=== PATIENT | female | born 1950 | race African-American/Black ===

== ENCOUNTER 2020-02-01 19:13 | Inpatient (IN) ==
[2020-02-01] MEDS ORDERED: SODIUM CHLORIDE 0.9% 1,000 ML IV STA (19:44)
[2020-02-01] MEDS ORDERED: PIPERACILLIN/TAZOBACTAM 3,375 MG in SODIUM CHLORIDE 0.9% 100 ML IV STA (19:44)
[2020-02-01 20:24] LABS: ABG Base Excess -2.2 MMOL/L (-2.5-2.5); ABG HCO3 22.6 MMOL/L (20-26); ABG Oxygen Saturation 98.6 % (95-100); ABG PCO2 34.3 MM HG (35-48); ABG PH 7.411 (7.35-7.45); ABG TCO2 19.4 MMOL/L (23-27); Allen Test Positive
[2020-02-01] MEDS ORDERED: VANCOMYCIN INJ 1,000 MG in SODIUM CHLORIDE 0.9% 250 ML IV STA (20:38)
[2020-02-01 20:44] LABS: Basophils % 0.2 % (0.0-0.8); Hematocrit 36.5 VOL% (35.7-47.0); Hemoglobin 11.7 GM/DL (12.0-16.0); Immature Granulocytes % 5.2 %; Immature Granulocytes Absolute 0.44 #; Lymphocytes # 0.5 10*3/uL (1.4-4.0); Lymphocytes % 6.4 % (21.3-54.2); Mean Corpuscular HGB Conc 32.1 GM/DL (32-36); Mean Corpuscular Volume 83.3 FL (87-102); Mean Platelet Volume 8.7 FL (9.6-12.0); Neutrophils % 81.2 % (38.7-73.9); Platelet Count 167 T/CUMM (130-400); Red Blood Count 4.38 MC/CUMM (3.8-5.5); Red Cell Distribution Width 16.1 % (9.3-17.3); White Blood Count 8.5 T/CUMM (4-12)
[2020-02-01 20:52] LABS: INR 1.3; PT Patient Result 13.6 SECS (9.8-11.9)
[2020-02-01 21:07] LABS: Alanine Aminotransferase 20 U/L (13-56); Albumin 1.5 G/DL (3.4-5.0); Alkaline Phosphatase 262 U/L (45-117); Aspartate Amino Transferase 55 U/L (0-37); Blood Urea Nitrogen 33 MG/DL (7-18); Calcium 10.3 MG/DL (8.5-10.1); Estimated Glom Filtration Rate 59 ML/MIN; Glucose 113 MG/DL (74-106); Osmolality,Calculated 280.8 MOS/KG (273-304); Total Protein 6.9 G/DL (6.4-8.3); Troponin I < 0.015 NG/ML (0.00-0.045)
[2020-02-01 21:16] LABS: Bilirubin,Urine Negative (Negative); Blood, Urine Small mg/dL (Negative); Glucose,Urine (UA) Negative (Negative); Hyaline Casts,Urine 146 /LPF (0-3); Ketones,Urine 5 mg/dL (Negative); Mucus,Urine Many /LPF (Occasional); Nitrite,Urine Negative (Negative); Protein,Urine 100 MG/DL; RBC,Urine 24 /HPF (0-4); Squamous Epithelial Cell,Urine Occasional /HPF (0-10); Urine Appearance CLOUDY (Clear); Urine Color Amber (Yellow); Urine Specific Gravity 1.021 (1.001-1.035); WBC,Urine 11 /HPF (0-6)
[2020-02-01] MEDS ORDERED: fentaNYL 100 MCG/2 ML VIAL IV STA (22:27)
[2020-02-01] MEDS ORDERED: ACETAMINOPHEN 325 MG TABLET PO PRN (23:23)
[2020-02-01] MEDS ORDERED: NICOTINE 21 MG/24 HR PATCH TRANSDERM PRN (23:23)
[2020-02-01] MEDS ORDERED: GLUCAGON 1 MG VIAL IM PRN (23:23)
[2020-02-01] MEDS ORDERED: DOCUSATE SODIUM 100 MG CAPSULE PO PRN (23:23)
[2020-02-01] MEDS ORDERED: ONDANSETRON 4 MG/2 ML VIAL IV PRN (23:23)
[2020-02-01] MEDS ORDERED: DEXTROSE 50% 25 GM/50 ML VIAL IV PRN (23:23)
[2020-02-01] MEDS ORDERED: hydrALAZINE 20 MG/1 ML VIAL IV PRN (23:23)
[2020-02-01] MEDS ORDERED: guaiFENesin/DM ER 600-30 MG TABLET PO PRN (23:23)
[2020-02-01] MEDS ORDERED: AZITHROMYCIN INJ 500 MG in SODIUM CHLORIDE 0.9% 250 ML IV SCH (23:30)
[2020-02-02] MEDS: ALBUTEROL/IPRATROPIUM 3 ML NEB RESP TX SCH ×2 (00:18→07:44)
[2020-02-02] MEDS ORDERED: SODIUM CHLORIDE 0.9% 1,000 ML IV SCH (01:30)
[2020-02-02] MEDS ORDERED: DEXT 5% NACL 0.9% KCL 40 MEQ 40 MEQ/1,000 ML BAG IV SCH (01:30)
[2020-02-02 02:40] LABS: Band Neutrophils 7 % (0-10); Lymphocytes 5 % (20-55); Metamyelocytes 1 %; Nucleated Red Blood Cells 1 (0-5); Segmented Neutrophils 82 % (50-85); Total Cells Counted 100
[2020-02-02 02:44] LABS: Hypochromasia 2+; Platelet Estimate Normal; Polychromasia Few
[2020-02-02] MEDS ORDERED: PIPERACILLIN/TAZOBACTAM 3,375 MG in SODIUM CHLORIDE 0.9% 100 ML IV SCH (04:30)
[2020-02-02 04:55] LABS: Basophils % 0.5 % (0.0-0.8); Eosinophils % 0.4 % (0.00-10.9); Hematocrit 38.7 VOL% (35.7-47.0); Hemoglobin 11.6 GM/DL (12.0-16.0); Immature Granulocytes % 9.5 %; Immature Granulocytes Absolute 0.78 #; Lymphocytes # 1.2 10*3/uL (1.4-4.0); Lymphocytes % 14.8 % (21.3-54.2); Mean Platelet Volume 9.2 FL (9.6-12.0); Monocytes % 6.6 % (1.7-12.7); Neutrophils % 68.2 % (38.7-73.9); Platelet Count 126 T/CUMM (130-400); Red Cell Distribution Width 16.2 % (9.3-17.3); White Blood Count 8.2 T/CUMM (4-12)
[2020-02-02 05:25] LABS: Calcium 9.8 MG/DL (8.5-10.1); Osmolality,Calculated 279.8 MOS/KG (273-304)
[2020-02-02] MEDS ORDERED: INFLUENZA VIRUS VACCINE 0.5 ML SYRINGE IM ONE (05:37)
[2020-02-02 06:28] LABS: Band Neutrophils 34 % (0-10); Total Cells Counted 100
[2020-02-02 06:30] LABS: Anisocytosis 1+; Burr Cells Few; Lymphocytes 13 % (20-55); Myelocytes 2 %; Platelet Estimate Adequate; Segmented Neutrophils 48 % (50-85); Smudge Cells Few
[2020-02-02] MEDS ORDERED: PANTOPRAZOLE 40 MG TABLET PO SCH (09:00)
[2020-02-02] MEDS ORDERED: VANCOMYCIN INJ 1,500 MG in SODIUM CHLORIDE 0.9% 500 ML IV SCH (09:00)
[2020-02-02] MEDS ORDERED: AZITHROMYCIN 250 MG TABLET PO SCH (09:00)
[2020-02-02] MEDS ORDERED: MORPHINE PCA 30 MG/30 ML SYRINGE IV SCH (11:30)
[2020-02-02] MEDS ORDERED: VANCOMYCIN INJ 500 MG in SODIUM CHLORIDE 0.9% 100 ML IV SCH (12:00)
[2020-02-02 12:35] VITALS: BP 64/47
== END 2020-02-02 23:50 | disposition expired | DRG 64 ==
LOC: N.ED 19:13 → N.EDINP 23:23 → SUATTDRO 23:23 → N.ICU 02-02 00:22 → N.4E 02-02 12:19
PROVIDERS: ADMIT Internal Medicine; ATTEND Internal Medicine